=== PATIENT | male | born 1985 | race Caucasian/White ===

== ENCOUNTER 2019-06-04 02:18 | Emergency (ER) | payer OTHER ==
[~2019-06-04] VITALS: Ht 170.2 cm; Wt 72.6 kg
[2019-06-04 02:20] VITALS: BP_SYST 123
--- NOTE | 2019-06-04 02:20 | NUR ---
Patient to ER chair to [facility] for evaluation. Side rails up. Report given to Bud PHILLIPS.
--- NOTE | 2019-06-04 02:20 | NUR ---
Pt [facility]'s Department for medical clearance, placed to ER chair 1. Pt c/o right wrist pain r/t fracture of right wrist. He arrives with a wrist splint in place and states that he is scheduled to have surgery.
--- NOTE | 2019-06-04 02:39 | NUR ---
Dr. Singer assessing pt.
[2019-06-04 02:45] VITALS: BP_SYST 114
[2019-06-04] MEDS ORDERED: IBUPROFEN 600 MG TABLET PO ONE (02:45)
--- NOTE | 2019-06-04 02:45 | NUR ---
Pt leaves ER in stable condition in c/o [facility]'s depart to detention.
== END 2019-06-04 02:45 ==
LOC: SED 02:18
DX: M25.531 Pain in right wrist (principal)
CPT/HCPCS: 99283